=== PATIENT | male | born 1970 | race American Indian/Alaskan Native ===

== ENCOUNTER 2019-12-02 12:58 | Inpatient (IN) | payer BC, MEDICAID, SELFPAY ==
[~2019-12-02] VITALS: Ht 180.3 cm; Wt 101.0 kg
[2019-12-02 01:37] VITALS: BP 93/49
[2019-12-02 13:20] VITALS: BP 119/73
[2019-12-02 13:30] VITALS: BP 119/73
[2019-12-02 14:41] LABS: microscopic required? YES; urine erythrocyte 1+ (NEGATIVE)
[2019-12-02 14:45] LABS: BASOPHIL % 0.2 % (0-2); PLATELET COUNT 329 x10^3mcL (130-400); RED CELL DISTRIBUTION WIDTH 19.5 % (11.5-14.5)
[2019-12-02 14:51] LABS: CALCIUM 9.1 mg/dL (8.5-10.1); CARBON DIOXIDE 36.7 mmol/L (21-32); CHLORIDE SERUM 96 mmol/L (98-107); CREATININE SERUM 0.4 mg/dL (0.7-1.3); GFR1 > 60 mL/min; GLUCOSE SERUM 90 mg/dL (74-106); POTASSIUM SERUM 4.6 mmol/L (3.5-5.1); SODIUM SERUM 131 mmol/L (136-145)
[2019-12-02 14:55] LABS: ALKALINE PHOSPHATASE 279 U/L (46-116); ALT/SGPT 30 U/L (16-63); AST/SGOT 25 U/L (15-37); BILIRUBIN TOTAL 0.3 mg/dL (0.20-1.00); C REACTIVE PROTEIN 6.2 mg/dL (<=0.9); LACTIC DEHYDROGENASE (LDH) 122 U/L (100-190)
[2019-12-02 14:58] LABS: ALBUMIN 1.9 g/dL (3.4-5.0); TOTAL PROTEIN, SERUM 8.6 g/dL (6.4-8.2)
[2019-12-02] MEDS ORDERED: PROAIR HFA8.5 GM NEB (15:05)
[2019-12-02] MEDS ORDERED: CITALOPRAM HYDR10 M1 GT (15:06)
[2019-12-02] MEDS ORDERED: ADULT TUSS100 MG/5 M GT (15:07)
[2019-12-02] MEDS ORDERED: HEPARIN SO5000 UNIT2 SQ (15:07)
[2019-12-02] MEDS ORDERED: ATI1 GT (15:08)
[2019-12-02] MEDS ORDERED: HUMALOG100 UNIT/1 (15:08)
[2019-12-02] MEDS ORDERED: PROTONIX40 MG/Pac1 PO (15:09)
[2019-12-02] MEDS ORDERED: PROA GT (15:09)
[2019-12-02] MEDS ORDERED: OXYCODONE H5 MG/5 ML PO (15:09)
[2019-12-02] MEDS ORDERED: MIRUD GT (15:10)
[2019-12-02] MEDS ORDERED: TEMAZEPAM15 MG PO (15:11)
[2019-12-02] MEDS ORDERED: VITAMIN C500 M6 GT (15:12)
[2019-12-02] MEDS ORDERED: MULTIPLE VITAMI1 T13 (15:12)
[2019-12-02 15:20] VITALS: BP 147/87
[2019-12-02 17:30] VITALS: BP 131/71
[2019-12-02 19:18] LABS: MAGNESIUM 1.6 mg/dL (1.8-2.4); PHOSPHOROUS 5.2 mg/dL (2.5-4.9)
[2019-12-02 20:45] VITALS: BP 93/49
[2019-12-02 23:09] LABS: AMPHETAMINE QUAL UR NONE DETECTED (See below)
[2019-12-03] VITALS (9 sets, daily range): BP systolic 117–172; BP diastolic 54–90; Ht 180.3 cm; Wt 101.0 kg
[2019-12-03 08:33] LABS: C REACTIVE PROTEIN 6.1 mg/dL (<=0.9); CALCIUM 9.5 mg/dL (8.5-10.1); CARBON DIOXIDE 32.9 mmol/L (21-32); CHLORIDE SERUM 100 mmol/L (98-107); CREATININE SERUM 0.4 mg/dL (0.7-1.3); GFR1 > 60 mL/min; GLUCOSE SERUM 70 mg/dL (74-106); MAGNESIUM 1.7 mg/dL (1.8-2.4); PHOSPHOROUS 2.8 mg/dL (2.5-4.9); POTASSIUM SERUM 4.2 mmol/L (3.5-5.1); SODIUM SERUM 136 mmol/L (136-145)
[2019-12-03 08:59] LABS: BASOPHIL % 0.4 % (0-2); PLATELET COUNT 260 x10^3mcL (130-400)
[2019-12-03 09:56] LABS: RED CELL DISTRIBUTION WIDTH 19.8 % (11.5-14.5)
[2019-12-04] VITALS (7 sets, daily range): BP systolic 96–159; BP diastolic 53–96
[2019-12-04 07:16] LABS: PLATELET COUNT 317 x10^3mcL (130-400)
[2019-12-04 07:35] LABS: BASOPHIL % 0 % (0-2); RED CELL DISTRIBUTION WIDTH 19.7 % (11.5-14.5)
[2019-12-04 08:14] LABS: ALKALINE PHOSPHATASE 277 U/L (46-116); ALT/SGPT 24 U/L (16-63); AST/SGOT 35 U/L (15-37); BILIRUBIN TOTAL 0.6 mg/dL (0.20-1.00); CALCIUM 9.5 mg/dL (8.5-10.1); CARBON DIOXIDE 30.1 mmol/L (21-32); CHLORIDE SERUM 95 mmol/L (98-107); CREATININE SERUM 0.4 mg/dL (0.7-1.3); GFR1 > 60 mL/min; GLUCOSE SERUM 91 mg/dL (74-106); PHOSPHOROUS 3.2 mg/dL (2.5-4.9); POTASSIUM SERUM 4.5 mmol/L (3.5-5.1); SODIUM SERUM 133 mmol/L (136-145)
[2019-12-04 08:16] LABS: C REACTIVE PROTEIN 12.9 mg/dL (<=0.9); TOTAL PROTEIN, SERUM 8.8 g/dL (6.4-8.2)
[2019-12-05] VITALS (7 sets, daily range): BP systolic 145–170; BP diastolic 84–106
[2019-12-05 07:50] LABS: ALKALINE PHOSPHATASE 257 U/L (46-116); ALT/SGPT 22 U/L (16-63); AST/SGOT 19 U/L (15-37); C REACTIVE PROTEIN 6.1 mg/dL (<=0.9); CARBON DIOXIDE 32.3 mmol/L (21-32); CHLORIDE SERUM 100 mmol/L (98-107); CREATININE SERUM 0.4 mg/dL (0.7-1.3); GFR1 > 60 mL/min; GLUCOSE SERUM 100 mg/dL (74-106); MAGNESIUM 1.8 mg/dL (1.8-2.4); PHOSPHOROUS 2.2 mg/dL (2.5-4.9); POTASSIUM SERUM 3.5 mmol/L (3.5-5.1); SODIUM SERUM 135 mmol/L (136-145)
[2019-12-05 07:55] LABS: TOTAL PROTEIN, SERUM 8.3 g/dL (6.4-8.2)
[2019-12-05 07:56] LABS: BASOPHIL % 0.3 % (0-2); PLATELET COUNT 306 x10^3mcL (130-400)
[2019-12-05 08:28] LABS: RED CELL DISTRIBUTION WIDTH 19.3 % (11.5-14.5)
[2019-12-06] VITALS (7 sets, daily range): BP systolic 129–159; BP diastolic 80–101
[2019-12-06 06:49] LABS: PLATELET COUNT 274 x10^3mcL (130-400)
[2019-12-06 06:58] LABS: BASOPHIL % 0 % (0-2); RED CELL DISTRIBUTION WIDTH 19.4 % (11.5-14.5)
[2019-12-06 06:59] LABS: CARBON DIOXIDE 27.9 mmol/L (21-32); CHLORIDE SERUM 99 mmol/L (98-107); CREATININE SERUM 0.3 mg/dL (0.7-1.3); GFR1 > 60 mL/min; GLUCOSE SERUM 109 mg/dL (74-106); MAGNESIUM 1.7 mg/dL (1.8-2.4); PHOSPHOROUS 2.2 mg/dL (2.5-4.9); POTASSIUM SERUM 3.3 mmol/L (3.5-5.1); SODIUM SERUM 136 mmol/L (136-145)
[2019-12-07] VITALS (11 sets, daily range): BP systolic 71–114; BP diastolic 37–86
[2019-12-07 06:34] LABS: PLATELET COUNT 267 x10^3mcL (130-400)
[2019-12-07 06:46] LABS: BASOPHIL % 0 % (0-2); RED CELL DISTRIBUTION WIDTH 19.8 % (11.5-14.5)
[2019-12-07 06:54] LABS: ALKALINE PHOSPHATASE 211 U/L (46-116); ALT/SGPT 21 U/L (16-63); AST/SGOT 16 U/L (15-37); BILIRUBIN TOTAL 0.18 mg/dL (0.20-1.00); C REACTIVE PROTEIN 1.9 mg/dL (<=0.9); CARBON DIOXIDE 34.6 mmol/L (21-32); CHLORIDE SERUM 102 mmol/L (98-107); CREATININE SERUM 0.4 mg/dL (0.7-1.3); GFR1 > 60 mL/min; GLUCOSE SERUM 89 mg/dL (74-106); MAGNESIUM 1.8 mg/dL (1.8-2.4); PHOSPHOROUS 3.1 mg/dL (2.5-4.9); POTASSIUM SERUM 3.8 mmol/L (3.5-5.1); SODIUM SERUM 137 mmol/L (136-145)
[2019-12-07 06:56] LABS: ALBUMIN 2.2 g/dL (3.4-5.0)
[2019-12-08] VITALS (11 sets, daily range): BP systolic 87–113; BP diastolic 44–67
[2019-12-08 07:13] LABS: CALCIUM 9.4 mg/dL (8.5-10.1); CHLORIDE SERUM 104 mmol/L (98-107); CREATININE SERUM 0.4 mg/dL (0.7-1.3); GFR1 > 60 mL/min; GLUCOSE SERUM 77 mg/dL (74-106); PHOSPHOROUS 2.8 mg/dL (2.5-4.9); POTASSIUM SERUM 3.9 mmol/L (3.5-5.1); SODIUM SERUM 138 mmol/L (136-145)
[2019-12-08 07:22] LABS: PLATELET COUNT 161 x10^3mcL (130-400)
[2019-12-08 07:39] LABS: RED CELL DISTRIBUTION WIDTH 18.9 % (11.5-14.5)
[2019-12-08 11:40] LABS: BAND NEUTROPHIL 1 % (0-10); MONOCYTE 4 % (0-7); SEGMENTED NEUTROPHILS 88 % (37-75)
[2019-12-08 11:41] LABS: burr cell (echinocyte) 1+; rbc morphology (normal/abnorm) ABNORMAL (NORMAL)
[2019-12-09 05:01] VITALS: BP 91/43
[2019-12-09 07:22] LABS: PLATELET COUNT 207 x10^3mcL (130-400)
[2019-12-09 07:31] LABS: CALCIUM 8.9 mg/dL (8.5-10.1); CARBON DIOXIDE 30.5 mmol/L (21-32); CHLORIDE SERUM 105 mmol/L (98-107); CREATININE SERUM 0.4 mg/dL (0.7-1.3); GFR1 > 60 mL/min; GLUCOSE SERUM 84 mg/dL (74-106); MAGNESIUM 1.7 mg/dL (1.8-2.4); PHOSPHOROUS 2.3 mg/dL (2.5-4.9); POTASSIUM SERUM 3.9 mmol/L (3.5-5.1); SODIUM SERUM 139 mmol/L (136-145)
[2019-12-09 07:39] LABS: BASOPHIL % 0 % (0-2)
[2019-12-09 08:10] VITALS: BP 83/34
[2019-12-09 08:15] VITALS: BP 83/34
[2019-12-09 12:01] VITALS: BP 98/47
[2019-12-09 16:25] VITALS: BP 102/49
[2019-12-09 19:55] VITALS: BP 137/76
[2019-12-10] VITALS (10 sets, daily range): BP systolic 86–107; BP diastolic 37–58
[2019-12-10 06:57] LABS: PLATELET COUNT 181 x10^3mcL (130-400)
[2019-12-10 07:29] LABS: CARBON DIOXIDE 32.6 mmol/L (21-32); CHLORIDE SERUM 106 mmol/L (98-107); CREATININE SERUM 0.4 mg/dL (0.7-1.3); GFR1 > 60 mL/min; GLUCOSE SERUM 90 mg/dL (74-106); MAGNESIUM 2.2 mg/dL (1.8-2.4); PHOSPHOROUS 2.3 mg/dL (2.5-4.9); POTASSIUM SERUM 4.1 mmol/L (3.5-5.1); SODIUM SERUM 139 mmol/L (136-145)
[2019-12-10 08:20] LABS: BASOPHIL % 0 % (0-2); RED CELL DISTRIBUTION WIDTH 19.9 % (11.5-14.5)
[2019-12-11] VITALS (9 sets, daily range): BP systolic 100–138; BP diastolic 54–74
[2019-12-11 07:00] LABS: PLATELET COUNT 195 x10^3mcL (130-400)
[2019-12-11 07:12] LABS: CALCIUM 9.5 mg/dL (8.5-10.1); CARBON DIOXIDE 29.6 mmol/L (21-32); CHLORIDE SERUM 106 mmol/L (98-107); CREATININE SERUM 0.6 mg/dL (0.7-1.3); GFR1 > 60 mL/min; GLUCOSE SERUM 113 mg/dL (74-106); PHOSPHOROUS 3.5 mg/dL (2.5-4.9); POTASSIUM SERUM 4.2 mmol/L (3.5-5.1); SODIUM SERUM 140 mmol/L (136-145)
[2019-12-11 07:20] LABS: BASOPHIL % 0 % (0-2); RED CELL DISTRIBUTION WIDTH 19.6 % (11.5-14.5)
[2019-12-12] VITALS (9 sets, daily range): BP systolic 78–119; BP diastolic 36–63
[2019-12-12 07:25] LABS: PLATELET COUNT 195 x10^3mcL (130-400)
[2019-12-12 07:46] LABS: CALCIUM 10.1 mg/dL (8.5-10.1); CARBON DIOXIDE 31.5 mmol/L (21-32); CHLORIDE SERUM 105 mmol/L (98-107); CREATININE SERUM 0.9 mg/dL (0.7-1.3); GFR1 > 60 mL/min; GLUCOSE SERUM 118 mg/dL (74-106); POTASSIUM SERUM 4.6 mmol/L (3.5-5.1); SODIUM SERUM 139 mmol/L (136-145)
[2019-12-12 08:27] LABS: RED CELL DISTRIBUTION WIDTH 19.8 % (11.5-14.5)
[2019-12-12 11:29] LABS: MONOCYTE 3 % (0-7); SEGMENTED NEUTROPHILS 92 % (37-75); rbc morphology (normal/abnorm) ABNORMAL (NORMAL)
[2019-12-13] VITALS (13 sets, daily range): BP systolic 76–123; BP diastolic 40–70
[2019-12-13 06:23] LABS: CALCIUM 10.4 mg/dL (8.5-10.1); CARBON DIOXIDE 25.1 mmol/L (21-32); CHLORIDE SERUM 103 mmol/L (98-107); CREATININE SERUM 1.3 mg/dL (0.7-1.3); GFR1 > 60 mL/min; GLUCOSE SERUM 150 mg/dL (74-106); MAGNESIUM 2.1 mg/dL (1.8-2.4); PHOSPHOROUS 5.2 mg/dL (2.5-4.9); POTASSIUM SERUM 5.4 mmol/L (3.5-5.1); SODIUM SERUM 136 mmol/L (136-145)
[2019-12-13 08:15] LABS: PLATELET COUNT 114 x10^3mcL (130-400); RED CELL DISTRIBUTION WIDTH 20.5 % (11.5-14.5)
[2019-12-13 09:59] LABS: BAND NEUTROPHIL 1 % (0-10); SEGMENTED NEUTROPHILS 87 % (37-75)
[2019-12-13 10:00] LABS: MONOCYTE 6 % (0-7); burr cell (echinocyte) 1+; rbc morphology (normal/abnorm) ABNORMAL (NORMAL)
[2019-12-14] VITALS (13 sets, daily range): BP systolic 112–139; BP diastolic 55–71
[2019-12-14 05:38] LABS: BASOPHIL % 0.1 % (0-2); PLATELET COUNT 194 x10^3mcL (130-400)
[2019-12-14 05:39] LABS: RED CELL DISTRIBUTION WIDTH 20.3 % (11.5-14.5)
[2019-12-14 05:43] LABS: CARBON DIOXIDE 30.4 mmol/L (21-32); CHLORIDE SERUM 103 mmol/L (98-107); CREATININE SERUM 1.2 mg/dL (0.7-1.3); GFR1 > 60 mL/min; GLUCOSE SERUM 110 mg/dL (74-106); MAGNESIUM 1.9 mg/dL (1.8-2.4); PHOSPHOROUS 2.7 mg/dL (2.5-4.9); POTASSIUM SERUM 4.2 mmol/L (3.5-5.1); SODIUM SERUM 137 mmol/L (136-145)
[2019-12-15] VITALS (16 sets, daily range): BP systolic 101–130; BP diastolic 52–65
[2019-12-15 05:34] LABS: PLATELET COUNT 158 x10^3mcL (130-400)
[2019-12-15 05:37] LABS: RED CELL DISTRIBUTION WIDTH 19.7 % (11.5-14.5)
[2019-12-15 05:42] LABS: BAND NEUTROPHIL 8 % (0-10); MONOCYTE 7 % (0-7); SEGMENTED NEUTROPHILS 77 % (37-75); rbc morphology (normal/abnorm) ABNORMAL (NORMAL)
[2019-12-15 05:43] LABS: PLATELET MORPHOLOGY PLATELETS NORMAL
[2019-12-15 05:48] LABS: CALCIUM 10.1 mg/dL (8.5-10.1); CARBON DIOXIDE 31.6 mmol/L (21-32); CHLORIDE SERUM 107 mmol/L (98-107); CREATININE SERUM 0.9 mg/dL (0.7-1.3); GFR1 > 60 mL/min; GLUCOSE SERUM 104 mg/dL (74-106); MAGNESIUM 1.8 mg/dL (1.8-2.4); PHOSPHOROUS 2.9 mg/dL (2.5-4.9); POTASSIUM SERUM 4.2 mmol/L (3.5-5.1); SODIUM SERUM 142 mmol/L (136-145)
[2019-12-16 00:20] VITALS: BP 121/67
[2019-12-16 02:05] VITALS: BP 117/61
[2019-12-16 03:37] VITALS: BP 109/64
[2019-12-16 04:10] VITALS: BP 122/78
[2019-12-16 04:51] VITALS: BP 114/64
[2019-12-16 07:18] LABS: CALCIUM 9.9 mg/dL (8.5-10.1); CARBON DIOXIDE 36.4 mmol/L (21-32); CHLORIDE SERUM 111 mmol/L (98-107); CREATININE SERUM 0.8 mg/dL (0.7-1.3); GFR1 > 60 mL/min; GLUCOSE SERUM 107 mg/dL (74-106); MAGNESIUM 1.8 mg/dL (1.8-2.4); PHOSPHOROUS 3.5 mg/dL (2.5-4.9); POTASSIUM SERUM 4.8 mmol/L (3.5-5.1); SODIUM SERUM 145 mmol/L (136-145)
[2019-12-16 07:32] LABS: BASOPHIL % 0.3 % (0-2)
[2019-12-16 08:25] LABS: PLATELET COUNT 120 x10^3mcL (130-400); RED CELL DISTRIBUTION WIDTH 20.6 % (11.5-14.5)
== END 2019-12-16 06:58 | disposition expired | DRG 3 ==
LOC: ED 12:58 → IC 16:38 → EDBEDREQ 16:38 → DU 16:38 → IC 12-12 18:00 → DU 12-16 04:49
PROVIDERS: Emergency Medicine; Family Medicine; Internal Medicine Critical Care Medicine; ADMIT Internal Medicine; ATTEND Internal Medicine
PROC: 0B110F4 Bypass Trachea to Cutaneous with Tracheostomy Device, Open Approach (ICD-10-PCS; 2019-12-02)
PROC: 5A1955Z Respiratory Ventilation, Greater than 96 Consecutive Hours (ICD-10-PCS; 2019-12-02)
PROC: 0B9L7ZX Drainage of Left Lung, Via Natural or Artificial Opening, Diagnostic (ICD-10-PCS; principal; 2019-12-07 09:00)
PROC: 0ND Head and Facial Bones, Extraction (ICD-10-PCS; 2019-12-08)
PROC: 0JD70ZZ Extraction of Back Subcutaneous Tissue and Fascia, Open Approach (ICD-10-PCS; 2019-12-08)
PROC: 0QDL0ZZ Extraction of Right Tarsal, Open Approach (ICD-10-PCS; 2019-12-08)
PROC: 0BC28ZZ Extirpation of Matter from Carina, Via Natural or Artificial Opening Endoscopic (ICD-10-PCS; 2019-12-13)
DX: A41.9 Sepsis, unspecified organism (principal); L89.154 Pressure ulcer of sacral region, stage 4; J96.02 Acute respiratory failure with hypercapnia; E43 Unspecified severe protein-calorie malnutrition; G82.50 Quadriplegia, unspecified; J96.01 Acute respiratory failure with hypoxia; J18.9 Pneumonia, unspecified organism; R65.21 Severe sepsis with septic shock; N18.6 End stage renal disease; J98.19 Other pulmonary collapse; E87.1 Hypo-osmolality and hyponatremia; D68.9 Coagulation defect, unspecified; N39.0 Urinary tract infection, site not specified; I47.1 Supraventricular tachycardia; J98.11 Atelectasis; L89.159 Pressure ulcer of sacral region, unspecified stage; I46.9 Cardiac arrest, cause unspecified; F41.9 Anxiety disorder, unspecified; Z20.828 Contact with and (suspected) exposure to other viral communicable diseases; E83.39 Other disorders of phosphorus metabolism; D64.9 Anemia, unspecified; Z68.32 Body mass index [BMI] 32.0-32.9, adult; Z95.0 Presence of cardiac pacemaker; Z79.899 Other long term (current) drug therapy; Z79.4 Long term (current) use of insulin; Z86.718 Personal history of other venous thrombosis and embolism; Z68.28 Body mass index [BMI] 28.0-28.9, adult
CPT/HCPCS: 31645; 36600; 82962; 83880; 87804; 92526-GN; 92610-GN; A4628; C9113; G0378; J0132; J0171; J0696; J0770; J1100; J1200; J1610; J1644; J1885; J1940; J2001; J2020; J2060; J2185; J2250; J2270; J2310; J2405; J2543; J2765; J3010; J3370; J3475; J3480; J3490; J7030; J7040; J7050; J7060; J7070; Q0092; Q9967; U0003-CS